=== PATIENT | male | born 1955 | race Caucasian/White ===

== ENCOUNTER → 2020-11-12 15:29 | Outpatient (CLI) | payer MEDICARE, OTHER, SELFPAY ==
--- NOTE | 2020-11-12 15:41 | DI.MRI.S_ITS ---
PROCEDURE: MR LUMBAR SPINE WO CON INDICATIONS: SPINAL STENOSIS, LUMBAR REGION WITH NEUROGENIC TECHNIQUE: Noncontrast sagittal T1 spin echo and T2 fast echo, sagittal STIR, axial T1 and T2 fast spin echo through the lumbar spine. In cases with scoliosis, additional coronal T2 fast spin echo may be performed. COMPARISON: [facility] [place], [place], XR LUMBAR SPINE WITH OLBIQUES PLUS FLEXION EXTENSION, 11/01/2020, 16:39. FINDINGS: Image quality: Excellent. Alignment and Curvature: Trace retrolisthesis of L3 on L4 , and L4 on L5. Bone Marrow: No acute fracture identified. Multilevel degenerative endplate sclerosis and spurring. Diffuse facet arthropathy. There is shortened appearance of the mid to lower lumbar pedicles in keeping with congenital spinal stenosis. Spinal Cord: Conus medullaris terminates at the L1 level. Visualized cord demonstrates normal signal and size. Paraspinous Soft Tissues: No paravertebral masses. There is diffuse epidural lipomatosis from the level of L3-S1. T12-L1: Normal appearance. L1-L2: Normal appearance. L2-L3: Normal appearance. L3-L4: Mild canal narrowing. Partial effacement of both lateral recesses with bilaterally symmetric appearance. Mild bilateral foraminal stenoses. L4-L5: Posterior annular fissure. Severe canal stenosis. Near complete effacement of both lateral recesses with bilaterally symmetric appearance. Moderate right and mild left foraminal narrowing. L5-S1: Posterior annular fissure. Mild canal narrowing. Partial effacement of both lateral recesses with bilaterally symmetric appearance. Severe bilateral foraminal narrowing, with slight nerve root compression on the right. IMPRESSION: Lower lumbar spondylosis and facet arthropathy. Severe canal stenosis at L4-L5. Multilevel bilateral subarticular narrowing as above. Severe bilateral foraminal stenosis at L5-S1, and moderate right L4-L5 foraminal narrowing. Lower lumbar epidural lipomatosis from L3-S1. Dictated by: Jerrell Bangura M.D. on 11/12/2020 at 16:29 Approved by: Jerrell Bangura M.D. on 11/12/2020 at 16:37
== END ==
PROVIDERS: Referring Provider Physical Medicine & Rehabilitation Pain Medicine; Visit Provider Physical Medicine & Rehabilitation Pain Medicine
DX: M48.062 Spinal stenosis, lumbar region with neurogenic claudication (principal); M47.816 Spondylosis without myelopathy or radiculopathy, lumbar region; M48.07 Spinal stenosis, lumbosacral region; E88.2 Lipomatosis, not elsewhere classified
CPT/HCPCS: 72148